=== PATIENT | female | born 1940 | race Two or more races ===

== ENCOUNTER 2016-12-04 10:49 | Day surgery (SDC) | payer OTHER ==
[2016-11-28 13:40] VITALS: BMI 27.9
[2016-12-04] MEDS ORDERED: PROPOFOL 20 ML ONE (11:00)
[2016-12-04 12:14] VITALS: TEMP 97.5
[2016-12-04 12:31] VITALS: BP 117/64; PULSE 78
--- NOTE | 2016-12-06 11:20 | PATH ---
Surgical Pathology Report Patient Name: RYAN MCGOWAN [facility]. Rec. #: [id number] /Age/Gender: 1940 (Age: 76) / F Account: [id number] Location: [facility]-ENDOSCOPY Taken: 12/04/2016 Received: 12/04/2016 Reported: 12/05/2016 Physicians: Flaco Cheatham M.D. Specimen(s) Received BX RECTUM Clinical History Change in bowel habits Rule out proctitis, diarrhea Final Diagnosis RECTUM, BIOPSY: COLONIC/RECTAL MUCOSA SHOWING MILD SURFACE HYPERPLASTIC CHANGE. NO EVIDENCE OF PROCTITIS. Electronically Signed Patricia Reid M.D. Gross Description Received in formalin, labeled "rectum" are 3 hall, irregular portions of soft tissue ranging from 0.1-0.5 cm. in greatest dimension. The specimens are submitted in toto in one cassette. /12/04/201612/04/2016
== END 2016-12-04 12:45 | disposition home or self-care (01) ==
LOC: FASU-ENDO 10:49
PROVIDERS: ATTEND Internal Medicine Gastroenterology
PROC: 0DBP8ZX Excision of Rectum, Via Natural or Artificial Opening Endoscopic, Diagnostic (ICD-10-PCS; principal; 2016-12-04 11:34)
DX: Z12.11 Encounter for screening for malignant neoplasm of colon (principal); R19.4 Change in bowel habit
CPT/HCPCS: 88305-TC